=== PATIENT | female | born 2000 ===

== ENCOUNTER 2022-02-18 13:46 | Inpatient (IN) | payer BC ==
[2022-02-18] MEDS ORDERED: Misoprostol 200 MCG Tab PO PRN (14:37)
[2022-02-18] MEDS ORDERED: Methylergonovine 0.2 MG/1 ML Amp IM PRN (14:37)
[2022-02-18] MEDS ORDERED: Terbutaline 1 MG/ML SDV SUBCUT PRN (14:37)
[2022-02-18] MEDS ORDERED: Sodium Chloride 0.9% 2.5 ML Syringe FLUSH PRN (14:37)
[2022-02-18] MEDS ORDERED: Misoprostol 25 MCG (1/4 of 100 MCG) Tab VAG PRN (14:37)
[2022-02-18] MEDS ORDERED: Carboprost Tromethamine 250 MCG/1 ML Amp IM PRN (14:37)
[2022-02-18] MEDS ORDERED: Sodium Chloride 0.9% 10 ML Syringe FLUSH PRN (14:37)
[2022-02-18] MEDS ORDERED: Butorphanol 1 MG/ML SDV IVPUSH PRN (14:37)
[2022-02-18] MEDS ORDERED: Water For Irrigation,Sterile 1,000 ML Container IRR PRN (14:37)
[2022-02-18] MEDS ORDERED: Sodium Chloride 0.9% 20 ML SDV IV PRN (14:37)
[2022-02-18] MEDS ORDERED: Tranexamic Acid 1,000 MG in Sodium Chloride 0.9% 100 ML IV PRN (14:37)
[2022-02-18] MEDS ORDERED: Lidocaine 1% 50 ML MDV INJECT PRN (14:37)
[2022-02-18] MEDS ORDERED: Oxytocin/0.9 % Sodium Chloride 30 UNIT/500 ML BAG IV SCH ×2 (14:45)
[2022-02-18] MEDS: Lactated Ringers 1,000 ML IV SCH ×3 (16:12→22:00)
[2022-02-18] MEDS ORDERED: ePHEDrine 50 MG/ML SDV IVPUSH PRN (21:27)
[2022-02-18] MEDS ORDERED: Ropivacaine HCl/PF 400 MG in Premix Bag 1 BAG EPIDUR SCH (21:30)
[2022-02-18] MEDS ORDERED: Ropivacaine/PF 400 MG/200 ML PCA EPIDUR ONE (21:30)
[2022-02-19] MEDS ORDERED: Ibuprofen 400 MG Tab PO PRN (02:23)
[2022-02-19] MEDS ORDERED: Witch Hazel Medicated Pads 40/Jar TOP PRN (02:23)
[2022-02-19] MEDS ORDERED: Lanolin 100% Cream 7 GM Tube TOP PRN (02:23)
[2022-02-19] MEDS ORDERED: Tranexamic Acid 1,000 MG in Sodium Chloride 0.9% 100 ML IV PRN (02:23)
[2022-02-19] MEDS ORDERED: Methylergonovine 0.2 MG/1 ML Amp IM PRN (02:23)
[2022-02-19] MEDS ORDERED: Bisacodyl 10 MG Supp RECTAL PRN (02:23)
[2022-02-19] MEDS ORDERED: Acetaminophen 500 MG Tab PO PRN ×2 (02:23)
[2022-02-19] MEDS ORDERED: Benzocaine/Menthol 20%-0.5% Spray 78 GM Cannister TOP PRN (02:23)
[2022-02-19] MEDS: Docusate Sodium 100 MG Cap PO PRN (08:05)
[2022-02-19] MEDS: Ibuprofen 800 MG Tab PO PRN ×2 (08:06→19:29)
[2022-02-19] MEDS: Prenatal Multivitamin with Calcium/Folic Acid/Iron Tab PO SCH (08:06)
[2022-02-20] MEDS: Ibuprofen 800 MG Tab PO PRN (06:16)
[2022-02-20] MEDS: Prenatal Multivitamin with Calcium/Folic Acid/Iron Tab PO SCH (08:17)
[2022-02-20] MEDS: Docusate Sodium 100 MG Cap PO PRN (08:17)
== END 2022-02-20 12:28 | disposition home or self-care (01) | DRG 560 ==
LOC: MW.OBCHECK 13:46 → MW.OB 13:49 → MW.OBCHECK 14:35 → MW.OB 14:38 → OBSVTOIN 02-19 01:55 → MW.OB 02-19 08:33
PROVIDERS: ADMIT Obstetrics & Gynecology; ATTEND Obstetrics & Gynecology
PROC: 10E0XZZ Delivery of Products of Conception, External Approach (ICD-10-PCS; principal; 2022-02-19)
PROC: 3E0P7VZ Introduction of Hormone into Female Reproductive, Via Natural or Artificial Opening (ICD-10-PCS; 2022-02-19)
PROC: 0HQ9XZZ Repair Perineum Skin, External Approach (ICD-10-PCS; 2022-02-19)
PROC: 3E0R3BZ Introduction of Anesthetic Agent into Spinal Canal, Percutaneous Approach (ICD-10-PCS; 2022-02-19)
PROC: 00HU33Z Insertion of Infusion Device into Spinal Canal, Percutaneous Approach (ICD-10-PCS; 2022-02-19)
DX: O98.52 Other viral diseases complicating childbirth (principal); U07.1 COVID-19; Z3A.37 37 weeks gestation of pregnancy; Z37.0 Single live birth; O42.92 Full-term premature rupture of membranes, unspecified as to length of time between rupture and onset of labor; Z87.891 Personal history of nicotine dependence; O70.0 First degree perineal laceration during delivery
CPT/HCPCS: 36415; 59025; 59409; 82803; 84112; 85014; 85018; 85027; 86592; 86850; 86900; 86901; A9270-GY; J2590; J2795; J7120; U0002

== ENCOUNTER 2024-11-21 12:39 | Inpatient (IN) | payer SELFPAY ==
[2024-11-21] MEDS ORDERED: Methylergonovine 0.2 MG/1 ML Amp IM PRN ×2 (13:13→20:12)
[2024-11-21] MEDS ORDERED: Carboprost Tromethamine 250 MCG/1 mL Vial IM PRN (13:13)
[2024-11-21] MEDS ORDERED: Sodium Chloride 0.9% 10 ML Syringe FLUSH PRN (13:13)
[2024-11-21] MEDS ORDERED: Sodium Chloride 0.9% 20 ML SDV IV PRN (13:13)
[2024-11-21] MEDS ORDERED: Sodium Chloride 0.9% 2.5 ML Syringe FLUSH PRN (13:13)
[2024-11-21] MEDS ORDERED: Misoprostol 200 MCG Tab PO PRN (13:13)
[2024-11-21] MEDS ORDERED: Water For Irrigation,Sterile 1,000 ML Container IRR PRN (13:13)
[2024-11-21] MEDS ORDERED: Lidocaine 1% 50 ML MDV INJECT PRN (13:13)
[2024-11-21] MEDS ORDERED: Butorphanol 2 MG/ML SDV IVPUSH PRN (13:13)
[2024-11-21] MEDS ORDERED: Oxytocin/0.9 % Sodium Chloride 30 UNIT/500 ML BAG IV SCH (13:15)
[2024-11-21 13:54] LABS: HEMATOCRIT 33.5 % (37.0-47.0); HEMOGLOBIN 11.6 g/dL (12.0-16.0); MEAN CORPUSCULAR HEMOGLOBIN 28.7 pg (28.0-32.0); MEAN CORPUSCULAR HGB CONC 34.6 g/dL (32.0-36.0); MEAN CORPUSCULAR VOLUME 82.9 fL (83.0-99.0); MEAN PLATELET VOLUME 10.4 fL (9.4-12.3); PLATELET COUNT,PLT 334 K/uL (150-400); RED BLOOD CELL COUNT 4.04 M/uL (4.10-5.30); WHITE BLOOD CELL COUNT,WBC 8.42 K/uL (3.9-11.3)
[2024-11-21] MEDS: Lactated Ringers 1,000 ML IV SCH (16:06)
[2024-11-21] MEDS: Oxytocin/0.9 % Sodium Chloride 30 UNIT/500 ML BAG IV SCH (16:06)
[2024-11-21] MEDS ORDERED: Bupivacaine 0.5% 10 ML SDV ONE (17:05)
[2024-11-21] MEDS ORDERED: Phenylephrine HCl In 0.9% NaCl 1 MG/10 ML Syringe ONE (17:06)
[2024-11-21] MEDS ORDERED: Ropivacaine HCl/PF 200 ML ONE (17:06)
[2024-11-21] MEDS: Ropivacaine HCl/PF 400 MG in Premix Bag 1 BAG EPIDUR SCH (17:24)
[2024-11-21] MEDS ORDERED: Phenylephrine HCl In 0.9% NaCl 1 MG/10 ML Syringe IVPUSH PRN (17:31)
[2024-11-21] MEDS ORDERED: Bupivacaine 0.5% 10 ML SDV INJECT ONE (17:31)
[2024-11-21] MEDS ORDERED: ePHEDrine 50 MG/ML SDV IVPUSH PRN (17:31)
[2024-11-21] MEDS ORDERED: ePHEDrine 50 MG/ML SDV IM PRN (17:31)
[2024-11-21] MEDS ORDERED: dexmedeTOMIDine HCl 200 MCG/2 ML SDV EPIDUR SCH (17:45)
[2024-11-21] MEDS ORDERED: Docusate Sodium 100 MG Cap PO PRN (20:12)
[2024-11-21] MEDS ORDERED: Misoprostol 200 MCG Tab RECTAL PRN (20:12)
[2024-11-21] MEDS ORDERED: Benzocaine/Menthol 20%-0.5% Spray 78 GM Cannister TOP PRN (20:12)
[2024-11-21] MEDS ORDERED: Lanolin 100% Cream 7 GM Tube TOP PRN (20:12)
[2024-11-21] MEDS: Ondansetron 4 MG/2 ML SDV IVPUSH PRN (20:15)
[2024-11-21 20:37] LABS: PH,UMBILICAL ARTERIAL 7.39 (7.18-7.38); PH,UMBILICAL VENOUS 7.4 (7.25-7.45)
[2024-11-22] MEDS: Acetaminophen 500 MG Tab PO PRN (01:42)
[2024-11-22 05:43] LABS: HEMATOCRIT 33.6 % (37.0-47.0)
[2024-11-22] MEDS: Ibuprofen 800 MG Tab PO PRN (06:08)
[2024-11-22] MEDS: Witch Hazel Medicated Pads 40/Jar TOP PRN (10:12)
== END 2024-11-22 22:31 | disposition home or self-care (01) | DRG 807 ==
LOC: MW.OBCHECK 12:39 → EDBD 12:39 → MERGE 12:39 → MW.OB 12:41 → MW.OBCHECK 15:47 → MW.OB 15:48 → OBSVTOIN 20:01 → MW.OB 11-22 00:16
PROVIDERS: ADMIT Obstetrics & Gynecology; ATTEND Obstetrics & Gynecology
PROC: 10E0XZZ Delivery of Products of Conception, External Approach (ICD-10-PCS; principal; 2024-11-21)
PROC: 3E0R3BZ Introduction of Anesthetic Agent into Spinal Canal, Percutaneous Approach (ICD-10-PCS; 2024-11-21)
PROC: 00HU33Z Insertion of Infusion Device into Spinal Canal, Percutaneous Approach (ICD-10-PCS; 2024-11-21)
DX: O42.02 Full-term premature rupture of membranes, onset of labor within 24 hours of rupture (principal); Z37.0 Single live birth; Z3A.37 37 weeks gestation of pregnancy; O99.214 Obesity complicating childbirth
CPT/HCPCS: 01967; 36415; 51702; 59025; 82803; 85014; 85018; 85027; 86592; 86850; 86900; 86901; A9270-GY; J0665; J2405; J2590; J2795; J7120